=== PATIENT | male | born 1960 | race African-American/Black ===

== ENCOUNTER 2020-05-26 06:49 | Inpatient (IN) | payer OTHER ==
[~2020-05-26] VITALS: Ht 175.3 cm; Wt 89.4 kg
[~2020-05-26 06:49] MED LIST: ALLEGRA-D 24 H1 EACH PO; AUGMENTIN 875875 MG PO; FLOMAX0.4 MG PO; PERCOCET 5-3251 EACH PO; PHENERGAN 25 MG25 M1 PO
[2020-05-26 06:51] VITALS: BP 144/82
[2020-05-26 07:18] LABS: ABSOLUTE NEUTROPHILS 2.1 thou/uL (1.4-8.2); BASOPHILS 0.5 % (0.0-2.0); EOSINOPHILS 7.6 % (0.0-3.0); HEMATOCRIT 35.8 % (42.0-52.0); HEMOGLOBIN 11.2 gm/dL (14.0-18.0); LYMPHOCYTES 26.7 % (24.0-44.0); MCH 23.5 pg (26.0-34.0); MCHC 31.3 g/dL (28.0-37.0); MCV 75.3 fL (80.0-100.0); MONOCYTES 10.6 % (1.0-8.0); PLATELET COUNT 205 thou/uL (150-400); POLYS 54.6 % (36.0-66.0); RBC 4.76 mil/uL (4.50-6.00); RDW 15.7 % (10.5-14.5); WBC 3.9 thou/uL (4.0-11.0)
[2020-05-26 07:21] LABS: ANION GAP 12 mmol/L (7-16); BUN 23 mg/dL (7-18); CALCIUM 8.3 mg/dL (8.5-10.1); CHLORIDE 106 mmol/L (98-107); CO2 26 mmol/L (21-32); CREATININE 0.9 mg/dL (0.7-1.3); GLUCOSE 103 mg/dL (74-106); POTASSIUM 3.7 mmol/L (3.5-5.1); SODIUM 144 mmol/L (136-145)
[2020-05-26 07:30] LABS: APTT 25.2 Seconds (24.5-32.8); PROTIME 10.4 Seconds (9.3-11.4)
[2020-05-26 07:31] LABS: ALBUMIN 3.6 g/dL (3.4-5.0); DIRECT BILIRUBIN 0.1 mg/dL (<0.1-0.2); SGOT 18 U/L (15-37); SGPT 32 U/L (30-65); TOTAL BILIRUBIN 0.4 mg/dL (0.2-1.0); TOTAL PROTEIN 6.9 g/dL (6.4-8.2); TROPONIN-I <0.06 ng/mL (<0.06)
[2020-05-26] MEDS ORDERED: PROAIR HFA8.5 GM INH (08:25)
[2020-05-26 09:42] VITALS: BP 144/66
[2020-05-26 10:06] VITALS: BP 134/83
[2020-05-26 11:07] VITALS: BP 119/71
[2020-05-26 12:36] LABS: % SATURATION 24 % (20-39); IRON 62 ug/dL (65-175); TIBC 263 ug/dL (250-450)
--- NOTE | 2020-05-26 14:50 | NUR ---
chart review. he new admit this morning, gi consulted. cm visited with pt at bedside, cm cont to wear face mask and shield during visit. intro to cm and dcp " live split level house alone. 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 drive vehicle. not on any rx medication only over the counter. is at [facility] in [facility] remember the dr name."/marky. no anticipated needs at dc. will cont. dcp home no needs.
--- NOTE | 2020-05-26 16:21 | NUR ---
RECIEVED PATIENT FROM EMERGENCY DEPARTMENT AT APPROX. 1030. PATIENT IS A&OX4, DENIES PAIN AND/OR DISTRESS. ADMITTED FOR LOWER GI BLEED; BMX2 W MINIMAL AMNT OF VINOD BLOOD. GI PROVIDERS SAW THIS PATIENT AND ORDERED H/H FOR A.M. IF STABLE PATIENT WILL DISCHARGE TOMMORROW. NS INFUSING ON L AC W NO ISSUES AT 100 MLS/HR. PATIENT IS INDEPENDENT AND STEADY REQUEST FOR MEDICAL RECORDS SENT TO [facility] . EDUCATION AND HX COMPLETED FOR ADMISSION. VITALS REMIAN STABLE. VOICES NO OTHER NEEDS AT THIS TIME. WILL CONTINUE TO MONITOR AND FOLLOW PLAN OF CARE.
[2020-05-26 20:10] VITALS: BP 129/81
--- NOTE | 2020-05-27 07:57 | NUR ---
ASSUMED CARE OF PT AT 1900HRS. PT IS AOX4 AND LETS NEEDS BE KNOWN. FALL PRECAUTION IN PLACE. PT DENIED PAIN, NAUSEA OR SOA. PT HAD SEVERAL BM THIS SHIFT, MINIMAL BLEEDING NOTED. ASSESSMENT CHARTED. PT RUNS SR ON TELE. PT WAS ABLE TO GET COMFORTABLE AND SLEEP PART OF THE SHIFT. REPORT GIVEN TO AM RN.
[2020-05-27 08:34] VITALS: BP 147/97
[2020-05-27 10:12] LABS: ABSOLUTE NEUTROPHILS 2.8 thou/uL (1.4-8.2); BASOPHILS 0.3 % (0.0-2.0); HEMATOCRIT 33.3 % (42.0-52.0); HEMOGLOBIN 10.4 gm/dL (14.0-18.0); LYMPHOCYTES 16.1 % (24.0-44.0); MCHC 31.4 g/dL (28.0-37.0); MCV 76.4 fL (80.0-100.0); MONOCYTES 5.8 % (1.0-8.0); PLATELET COUNT 191 thou/uL (150-400); POLYS 70.8 % (36.0-66.0); RBC 4.35 mil/uL (4.50-6.00); RDW 16.2 % (10.5-14.5)
[2020-05-27 10:24] LABS: CALCIUM 8.6 mg/dL (8.5-10.1); POTASSIUM 3.8 mmol/L (3.5-5.1)
[2020-05-27 15:25] VITALS: BP 147/97
[2020-05-27 15:58] VITALS: BP 147/97
[2020-05-27 16:00] VITALS: BP 147/97
--- NOTE | 2020-06-01 11:23 | EKG ---
[facility] [address] [place] [address] ELECTROCARDIOGRAM REPORT Name: PRAFUL CENTENO Room #: 456-P DIS IN M.R.#: [id number] Admission: 05/26/20 Attend Phys: Rohit Vogel MD Discharge: 05/27/20 Date of : 64 Report #: [id number] THIS REPORT FOR: cc: Emanuel Morgan K. Steven DO Couchonnal,Brayden Mckeon MD ~ <ELECTRONICALLY SIGNED> By: Brayden Jenkins MD 05/26/20 1047 0831 0 Brayden Jenkins MD /EPI
== END 2020-05-27 15:38 | disposition home or self-care (01) | DRG 378 ==
LOC: ER 06:49 → 4W 08:40 → EROBS 08:40 → 4W 10:16
PROVIDERS: Emergency Medicine; Nurse Practitioner; ADMIT Internal Medicine; ATTEND Internal Medicine
DX: K92.1 Melena (principal); D62 Acute posthemorrhagic anemia; J45.909 Unspecified asthma, uncomplicated; Z87.442 Personal history of urinary calculi; Z23 Encounter for immunization; Z20.828 Contact with and (suspected) exposure to other viral communicable diseases
CPT/HCPCS: 10045

== ENCOUNTER 2020-09-09 08:44 | Emergency (ER) | payer OTHER ==
[~2020-09-09] VITALS: Ht 175.3 cm; Wt 86.2 kg
[~2020-09-09 08:44] MED LIST changes: +PROAIR HFA8.5 GM INH
[2020-09-09] MEDS ORDERED: PROAIR HFA8.5 GM INH (11:53)
[2020-09-09] MEDS ORDERED: PREDNISONE 20 M20 MG PO (11:53)
[2020-09-09 12:19] VITALS: BP 130/75
--- NOTE | 2020-09-10 11:28 | EKG ---
[facility] [place] [address] ELECTROCARDIOGRAM REPORT Name: PRAFUL CENTENO [facility] [id number] Admission: 09/09/20 Attend Phys: Discharge: 09/09/20 Date of : 64 Report #: [id number] [facility] ED Test Date: 2020-09-09 Test Time: 09:07:41 Pat Name: PRAFUL CENTENO Department: Room: Gender: M Picker/Puller: REGAN : 1960 Requested By: [place] Order Number: [id number] MD: Jay Willson Measurements Intervals [place] Rate: 98 P: 58 WV: 170 QRS: 189 QRSD: 92 T: 49 QT: 348 QTc: 445 Interpretive Statements Sinus rhythm Consider right ventricular hypertrophy Compared to ECG 05/26/2020 08:31:05 ST (T wave) deviation now present Left posterior fascicular block no longer present Myocardial infarct finding no longer present T-wave abnormality no longer present Electronically Signed On 09-10-2020 11:28:02 CDT by Jay Willson [email or web address] <ELECTRONICALLY SIGNED> By: Jay Willson MD, [facility] 09/10/20 1128 0907 09 Jay Willson MD, [facility] /EPI
== END 2020-09-09 12:19 | disposition home or self-care (01) ==
LOC: ER 08:44
DX: J45.909 Unspecified asthma, uncomplicated (principal); I10 Essential (primary) hypertension; Z79.899 Other long term (current) drug therapy